=== PATIENT | male | born 1940 | race Caucasian/White ===

== ENCOUNTER → 2019-04-22 07:50 | Outpatient (REF) | payer MEDICARE, SELFPAY | LOC: ANHLAB 07:50 | PROVIDERS: PCP Pediatrics; Visit Provider Nurse Practitioner | DX: C44.311 Basal cell carcinoma of skin of nose (principal); D49.2 Neoplasm of unspecified behavior of bone, soft tissue, and skin | CPT/HCPCS: 88305; 88331 ==